=== PATIENT | female | born 1965 | race Caucasian/White ===

== ENCOUNTER 2020-08-05 00:18 | Emergency (ER) | payer SELFPAY ==
[~2020-08-05] VITALS: Ht 167.6 cm; Wt 68.0 kg
[2020-08-05 01:48] LABS: Acetaminophen, Random 4.2 ug/mL (10.0-30.0); Alanine Aminotransfer (ALT/SGP 84 U/L (12-78); Albumin/Globulin Ratio 0.4 (0.8-1.8); Alk Phos 210 U/L (50-136); Anion Gap 5 mmol/L (6-16); Aspartate Aminotrans (AST/SGOT 101 U/L (12-37); Bilirubin, Total 0.5 mg/dL (0.1-1.0); Blood Urea Nitrogen 18 mg/dL (8-24); Bun/Creatinine Ratio 24.5 (12.0-20.0); CO2, Blood 29 mmol/L (21-32); Chloride, Blood 111 mmol/L (98-108); Creatinine, Blood 0.74 mg/dL (0.40-1.00); Ethanol (Alcohol), Blood, Med <3 mg/dL; Globulin, Blood 4.8 g/dL (2.2-4.0); Glomerular Filtration Rate >60 (60-); Glucose, Blood 117 mg/dL (70-99); Potassium, Blood 3.8 mmol/L (3.5-5.5); Salicylate 15.2 mg/dL (2.8-20.0); Sodium, Blood 145 mmol/L (136-145); Total Protein, Blood 6.8 g/dL (6.4-8.2)
[2020-08-05 01:52] LABS: BASOPHILS ABSOLUTE AUTO 0.07 K/mm3 (0.00-0.23); BASOPHILS PERCENT AUTO 1 % (0-2); EOSINOPHILS ABSOLUTE AUTO 0.51 K/mm3 (0.00-0.68); EOSINOPHILS PERCENT AUTO 6 % (0-6); Hematocrit 42.7 % (33.0-51.0); Hemoglobin 13.5 g/dL (11.5-16.0); IMMATURE GRAN ABSOLUTE AUTO 0.02 K/mm3 (0.00-0.10); IMMATURE GRAN PERCENT AUTO 0 % (0-1); LYMPHOCYTES PERCENT AUTO 33 % (21-46); MONOCYTES ABSOLUTE AUTO 0.94 K/mm3 (0.16-1.47); MONOCYTES PERCENT AUTO 12 % (4-13); Mean Corpuscular HGB 32.5 pg (26.0-34.0); Mean Corpuscular HGB Conc 31.6 g/dL (31.5-36.5); Mean Corpuscular Volume 103 fL (80-100); Mean Platelet Volume 11.2 fL (9.1-12.4); NEUTROPHILS ABSOLUTE AUTO 3.81 K/mm3 (1.96-9.15); NEUTROPHILS PERCENT AUTO 48 % (41-73); Platelet Count 122 K/mm3 (150-400); RDW Coefficient Variation 13.7 % (11.7-14.2); RDW Standard Deviation 52.6 fL (35.1-46.3); Red Blood Cell Count 4.15 M/mm3 (3.80-5.20); White Blood Cell Count 7.95 K/mm3 (4.00-11.30)
[2020-08-05 06:14] LABS: Source, Urine Clean Catch
[2020-08-05 06:18] LABS: Bilirubin, Urine Neg (Neg); Blood, Urine 2+ (Neg); Glucose Qualitative, Urine Neg (Neg); Ketones, Urine Neg (Neg); Leukocyte Esterase, Urine Neg (Neg); Nitrite, Urine Pos (Neg); Protein, Urine 2+ (Neg); Specific Gravity, Urine 1.015 (1.003-1.022); Urobilinogen, Urine 2+ (Normal); pH, Urine 6.5 (5.0-8.0)
[2020-08-05 06:23] LABS: Appearance, Urine Hazy (Clear); Color, Urine Yellow (P-Yellow)
[2020-08-05 06:24] LABS: Bacteria Many /hpf; Red Blood Cells, Urine 0-2 /hpf (0-2); Squamous Epithelial Cells Rare /hpf (Few); White Blood Cells, Urine 0-2 /hpf (0-5)
[2020-08-05 06:29] LABS: U Amphetamine Screen DETECTED; U Barbituate Screen Not Detected; U Benzodiazapine Screen Not Detected; U Buprenorphine Screen Not Detected; U Cannabinoids Screen Not Detected; U Cocaine Screen Not Detected; U Methadone Screen Not Detected; U Methamphetamine Screen DETECTED; U Opiates Screen Not Detected; U Oxycodone Screen Not Detected; U Phencyclidine Screen Not Detected; U Propoxyphene Screen Not Detected
== END 2020-08-05 09:58 | disposition home or self-care (01) ==
LOC: ER 00:18
PROVIDERS: Emergency Medicine
DX: R10.9 Unspecified abdominal pain (principal); F15.10 Other stimulant abuse, uncomplicated; R11.2 Nausea with vomiting, unspecified; F17.200 Nicotine dependence, unspecified, uncomplicated; Z88.0 Allergy status to penicillin
CPT/HCPCS: 74176; 80053; 81001; 81025; 83690; 85025; 87077; 87086; 87186; 96374; 99284-25; G0480; J2060; J7030

== ENCOUNTER 2020-08-19 20:08 | Emergency (ER) | payer SELFPAY ==
[~2020-08-19] VITALS: Ht 175.3 cm; Wt 59.0 kg
[2020-08-19 21:50] LABS: U Amphetamine Screen DETECTED; U Barbituate Screen Not Detected; U Benzodiazapine Screen Not Detected; U Buprenorphine Screen Not Detected; U Cannabinoids Screen Not Detected; U Cocaine Screen Not Detected; U Methadone Screen Not Detected; U Methamphetamine Screen DETECTED; U Opiates Screen Not Detected; U Oxycodone Screen Not Detected; U Phencyclidine Screen Not Detected; U Propoxyphene Screen Not Detected
[2020-08-19] MEDS ORDERED: PRED20 PO (23:28)
[2020-08-19] MEDS ORDERED: ALBU90OI INH (23:28)
== END 2020-08-20 01:22 | disposition home or self-care (01) ==
LOC: ER 20:08
PROVIDERS: Emergency Medicine
DX: R09.02 Hypoxemia (principal); F15.10 Other stimulant abuse, uncomplicated; F17.200 Nicotine dependence, unspecified, uncomplicated; Z88.0 Allergy status to penicillin; Z79.52 Long term (current) use of systemic steroids
CPT/HCPCS: 71045; 93005; 93010; 94644; 96372; 99285-25; J1100; J2060; J2930

== ENCOUNTER 2020-08-27 20:23 | Inpatient (IN) | payer OTHER ==
[~2020-08-27] VITALS: Ht 175.3 cm; Wt 69.8 kg
[~2020-08-27 20:23] MED LIST: ALBU90OI INH; PRED20 PO
[2020-08-28 01:28] LABS: BASOPHILS ABSOLUTE AUTO 0.05 K/mm3 (0.00-0.23); BASOPHILS PERCENT AUTO 1 % (0-2); EOSINOPHILS ABSOLUTE AUTO 0.15 K/mm3 (0.00-0.68); EOSINOPHILS PERCENT AUTO 2 % (0-6); Hematocrit 38.6 % (33.0-51.0); Hemoglobin 12.4 g/dL (11.5-16.0); IMMATURE GRAN ABSOLUTE AUTO 0.04 K/mm3 (0.00-0.10); IMMATURE GRAN PERCENT AUTO 1 % (0-1); LYMPHOCYTES ABSOLUTE AUTO 1.49 K/mm3 (0.84-5.20); LYMPHOCYTES PERCENT AUTO 20 % (21-46); MONOCYTES ABSOLUTE AUTO 1.19 K/mm3 (0.16-1.47); MONOCYTES PERCENT AUTO 16 % (4-13); Mean Corpuscular HGB 32.3 pg (26.0-34.0); Mean Corpuscular HGB Conc 32.1 g/dL (31.5-36.5); Mean Corpuscular Volume 101 fL (80-100); Mean Platelet Volume 12.3 fL (9.1-12.4); NEUTROPHILS PERCENT AUTO 61 % (41-73); Platelet Count 87 K/mm3 (150-400); RDW Coefficient Variation 14.3 % (11.7-14.2); RDW Standard Deviation 53.5 fL (35.1-46.3); Red Blood Cell Count 3.84 M/mm3 (3.80-5.20); White Blood Cell Count 7.42 K/mm3 (4.00-11.30)
[2020-08-28 01:47] LABS: Alanine Aminotransfer (ALT/SGP 67 U/L (12-78); Albumin, Blood 2.2 g/dL (3.4-5.0); Albumin/Globulin Ratio 0.5 (0.8-1.8); Alk Phos 211 U/L (50-136); Anion Gap 5 mmol/L (6-16); Aspartate Aminotrans (AST/SGOT 58 U/L (12-37); Bilirubin, Total 0.9 mg/dL (0.1-1.0); Blood Urea Nitrogen 10 mg/dL (8-24); CO2, Blood 27 mmol/L (21-32); Calcium, Blood 7.6 mg/dL (8.5-10.1); Chloride, Blood 106 mmol/L (98-108); Creatinine, Blood 0.53 mg/dL (0.40-1.00); Globulin, Blood 4.5 g/dL (2.2-4.0); Glomerular Filtration Rate >60 (60-); Glucose, Blood 242 mg/dL (70-99); Potassium, Blood 3.8 mmol/L (3.5-5.5); Sodium, Blood 138 mmol/L (136-145); Total Protein, Blood 6.7 g/dL (6.4-8.2); Troponin I <0.015 ng/mL (0.000-0.040)
--- NOTE | 2020-08-28 05:00 | NUR ---
pt arrived to room via stretcher, stood and walked to bed. a/o x 4, cooperative. SOB with exertion/speaking. NC O2 2L applied, SPO2 >90%. Lungs: course, experatory crackles in bases. VS show HR 108.
--- NOTE | 2020-08-28 16:15 | NUR ---
PT IS A/OX3, ANXIOUS AND SPASTIC/IMPULSIVE, AT TIMES NON COMPLIENT WITH TAKEING MEDICATION. THE PT WAS UP IND T/O THE DAY TO THE BATHROOM, PT IS SOB WITH ACTIVITY, THE PT DENIED ANY PAIN T/O THE DAY, THE PT WAS GIVEN A SHOWER THIS AFTERNOON, CALL LIGHT IN REACH, WILL CONTINUE TO MONITOR AND ASSESS FOR CHANGES
--- NOTE | 2020-08-29 05:15 | NUR ---
SHIFT SUMMARY PT HAS RESTED OFF AND ON T/O THE NIGHT. PT IS GENREALLY ANXIOUS BUT PLESANT AND COOPERATIVE WITH CARE. NEW IV ESTABLISHED USING ULTRASOUND, OLD IV WAS LEAKING. PT HAS BEEN INDEPENDENT IN THE ROOM. HARSH MOIST PRODUCTIVE COUGH. PT WEARS HER OXYGEN OFF AND ON THIS SHIFT. RESP LABORED WITH EXERTION. NO ACUTE CHANGES IN ASSESSMENT. BED IN LOWEST POSITON, CALL LIGHT WITHIN REACH.
--- NOTE | 2020-08-29 16:26 | NUR ---
PT IS A/OX3, PLEASANT AND COOPERATIVE, THE PT IS UP IND IN HER ROOM , THE PT HAS BEEN OUT AMBULATING IN THE [place] USEING THE FWW, THE PT APPEARS TO BE BREATHING EASILY ON RA AT THIS TIME MILDLY SOB WITH ACTIVITY, THE PT WAS UP AND SHOWERED TODAY, BOWEL CARE WAS GIVEN PT CONTINUES TO REPORT CONSTIPATION, CALL LIGHT IN REACH, WILL CONTNUE TO MONITOR AND ASSESS FOR CHANGES
--- NOTE | 2020-08-30 01:09 | NUR ---
ANXIETY-BEHA AROUND 2315 PT AWOKE FROM A SHORT NAP. SHE WAS EXTREMELY ANXIOUS, YELLING OUT/CURSING AND PACING BACK AND FORTH IN HER ROOM. MOVING FROM HER BED TO THE RECLINER TO BENCH, AND EVEN AT ONE POINT WAS LAYING ON THE FLOOR. SHE COMPLAINED OF BEING HOT AND COLD, AND ITCHING. PT GRABBING AND PULLING ON HER GOWN AND THE TELE LEADS. PT HAS A POSITIVE HX OF METH ABUSE, NO TOX SCREEN DONE UPON ADMISSION. I ASKED PT WHEN SHE LAST USED AND SHE REPORTS TWO WEEKS AGO. PT ALSO COMPLAINED OF LEFT CHRONIC HIP PAIN. DR. FARRELL CALLED AND NOTIFED AROUND 2330 OF PT ANXIETY, POSITIVE METH HX AND HIP PAIN. RECEIVED ORDER FOR ATARAX FOR ANXIETY AND TORADOL FOR PAIN. AFTER RECEIVING ORDER PT INITALLY REFUSED TO TAKE ATARAX AND TORADOL AND FELL ASLEEP FOR ABOUT ANOTHER HOUR. SHE AWOKE AGAIN ANXIOUS WITH SAME BEHAVIOUR PREVIOUSLY MENTIONED, BUT WITH MUCH MORE INTENSITY. SHE THEN REQUESTED THE ATARAX AND TORADOL. BOTH WERE GIVEN BUT WITH LITTLE EFFECT ON PT BEHAVIOUR, AND SHE CONTINUED TO ESCULATE YELLING OUT LOUDLY AND NOT STAYING IN BED. PT HAS HAD OFF AND ON NAUSEA/VOMITING AND DRY HEAVES SINCE THE START OF THE SHIFT AND RECEIVED REGLAN WITH AFFECT. SHE DENIED NAUSEA OR VOMITTING, BUT APPEARED TO BE DRY HEAVING. DR. CORDERO CALLED AND NOTIFIED OF PT INCREASED ANXIETY AND POSITIVE METH HX AT 0100. NOTIFIED HIM THAT PT RECEIVED ATARAX WITH LITTLE TO NO EFFECT AND REQUESTED SOMETHING ELSE FOR ANXIETY AND A TOX SCREEN. RECEIVED ORDER FOR IV ATIVAN AND VIC VEST IF NEEDED. HE DID NOT WANT TO ORDER A TOX SCREEN AT THIS TIME. ATIVAN GIVEN AND SEEMS TO BE TAKING EFFECT, NO RESTRAINTS ARE NEEDED AT THIS TIME. PT IS RESTING IN BED. CALL LIGHT WITHIN REACH. WILL CONTINUE TO MONITOR. CHECKING CLERK'S AWARE.
--- NOTE | 2020-08-30 05:09 | NUR ---
SHIFT SUMMARY PT HAS OVERALL HAD A RESTLESS NIGHT. PT HAS HX OF METH ABUSE AND IS POSSIBLY EXPERIENCING WITHDRAWAL. PT HAS HAD PERIODS OF AGITATION AND SEVERE ANXIETY UNABLE TO STAY STILL. YELLING, CURSING AND TALKING TO HERSELF, N/V, DRY HEAVES. HOSPITALIST HAS BEEN NOTIFIED AND ORDERS RECEIVED FOR ATIVAN AND ATARAX. BOTH GIVEN WITH EFFECT. PT HAS RESTED SINCE THAT TIME. SHE REMAINS INDEPENDENT IN THE ROOM, USING A WALKER TO AMBULATE. VITALS ARE STABLE. BED IN LOWEST POSITON, CALL LIGHT WITHIN REACH.
[2020-08-30 05:46] LABS: Hematocrit 39.3 % (33.0-51.0); Hemoglobin 12.9 g/dL (11.5-16.0); Mean Corpuscular HGB 32.8 pg (26.0-34.0); Mean Corpuscular HGB Conc 32.8 g/dL (31.5-36.5); Mean Corpuscular Volume 100 fL (80-100); Mean Platelet Volume 12.2 fL (9.1-12.4); Platelet Count 118 K/mm3 (150-400); RDW Coefficient Variation 14.2 % (11.7-14.2); RDW Standard Deviation 53.1 fL (35.1-46.3); Red Blood Cell Count 3.93 M/mm3 (3.80-5.20); White Blood Cell Count 16.48 K/mm3 (4.00-11.30)
[2020-08-30 06:04] LABS: Alanine Aminotransfer (ALT/SGP 77 U/L (12-78); Albumin/Globulin Ratio 0.4 (0.8-1.8); Alk Phos 166 U/L (50-136); Anion Gap 1 mmol/L (6-16); Aspartate Aminotrans (AST/SGOT 69 U/L (12-37); Bilirubin, Total 0.7 mg/dL (0.1-1.0); Blood Urea Nitrogen 29 mg/dL (8-24); Bun/Creatinine Ratio 40.9 (12.0-20.0); CO2, Blood 34 mmol/L (21-32); Calcium, Blood 8.5 mg/dL (8.5-10.1); Chloride, Blood 106 mmol/L (98-108); Creatinine, Blood 0.71 mg/dL (0.40-1.00); Globulin, Blood 4.5 g/dL (2.2-4.0); Glomerular Filtration Rate >60 (60-); Glucose, Blood 106 mg/dL (70-99); Potassium, Blood 4.5 mmol/L (3.5-5.5); Sodium, Blood 141 mmol/L (136-145); Total Protein, Blood 6.5 g/dL (6.4-8.2)
--- NOTE | 2020-08-30 08:44 | NUR ---
WHEEZING WITH INCREASED WORK OF BREATHING AND DYSPNEA. RT NOTIFIED. PT REFUSED RT TX THIS AM BUT IS AGREEABLE NOW. UP IN CHAIR. O2 SATS WNL
--- NOTE | 2020-08-30 11:22 | NUR ---
PATIENT WAS HOMELESS PRIOR TO MOVING TO [place], AND WAS NOT TAKING ANY MEDICATIONS. REFUSED SECOND SET OF BLOOD CULTURES. EXPLAINED PURPOSE AND NECESSITY, CONTINUES TO DECLINE. NOTIFIED.
[2020-08-30 13:52] LABS: U Amphetamine Screen Not Detected; U Barbituate Screen Not Detected; U Benzodiazapine Screen Not Detected; U Buprenorphine Screen Not Detected; U Cannabinoids Screen Not Detected; U Cocaine Screen Not Detected; U Methadone Screen Not Detected; U Methamphetamine Screen Not Detected; U Opiates Screen Not Detected; U Oxycodone Screen Not Detected; U Phencyclidine Screen Not Detected
[2020-08-30 13:53] LABS: U Propoxyphene Screen Not Detected
--- NOTE | 2020-08-30 15:30 | NUR ---
PATIENT IS HAVING SEVERE ANXIETY AND AGITATION DUE TO NPO STATUS. THREW TELE BOX ACROSS THE ROOM. STATES SHE IS LEAVING AMA. CALLED MD TO NOTIFY, MD STATES SHE IS NOT HAVE FOOD, AND WE ARE TO AWAIT SURGERY. PT YELLING PROFANITIES UNABLE TO UNDERSTAND RATIONALE FOR NPO STATUS; KEEPS ASKING WHY SHE IS NPO, AFTER EXPLAINING SBO TX IN A MULTITUDE OF WAYS. LAYING IN BED AT THIS TIME WITH TELE PACK OFF AND BED ALARM ON. LR IN PLACE AT 150ML/HR.
--- NOTE | 2020-08-30 20:32 | NUR ---
PT REFUSED VITAL SIGNS, NURSE NOTIFIED
--- NOTE | 2020-08-30 20:45 | NUR ---
REFUSED CARE PT REFUSED PM VITALS WELL MEDICATIONS THIS EVENING. AGREEABLE TO ASSESSMENT AFTER SOME RESISTANCE.
[2020-08-31 04:56] LABS: BASOPHILS ABSOLUTE AUTO 0.01 K/mm3 (0.00-0.23); BASOPHILS PERCENT AUTO 0 % (0-2); EOSINOPHILS ABSOLUTE AUTO 0.03 K/mm3 (0.00-0.68); EOSINOPHILS PERCENT AUTO 0 % (0-6); Hematocrit 37.4 % (33.0-51.0); IMMATURE GRAN ABSOLUTE AUTO 0.07 K/mm3 (0.00-0.10); IMMATURE GRAN PERCENT AUTO 1 % (0-1); LYMPHOCYTES ABSOLUTE AUTO 1.94 K/mm3 (0.84-5.20); LYMPHOCYTES PERCENT AUTO 18 % (21-46); MONOCYTES ABSOLUTE AUTO 1.28 K/mm3 (0.16-1.47); MONOCYTES PERCENT AUTO 12 % (4-13); Mean Corpuscular HGB 32.2 pg (26.0-34.0); Mean Corpuscular HGB Conc 32.1 g/dL (31.5-36.5); Mean Corpuscular Volume 100 fL (80-100); Mean Platelet Volume 12.3 fL (9.1-12.4); NEUTROPHILS ABSOLUTE AUTO 7.51 K/mm3 (1.96-9.15); NEUTROPHILS PERCENT AUTO 69 % (41-73); Platelet Count 97 K/mm3 (150-400); RDW Coefficient Variation 13.9 % (11.7-14.2); RDW Standard Deviation 51.8 fL (35.1-46.3); Red Blood Cell Count 3.73 M/mm3 (3.80-5.20); White Blood Cell Count 10.84 K/mm3 (4.00-11.30)
--- NOTE | 2020-08-31 05:05 | NUR ---
JUNIOR ADMINISTRATIVE ASSISTANT SUMMARY A/OX3. AGITATED AND ANXIOUS AT TIMES. REFUSES MOST CARE. PG TO BARBIE RUNNING LR AT 150. UP TO BSC WITH 1 ASSIST. SEVERAL NOLAND COLORED BM'S THIS SHIFT. ADVANCED TO FULL LIQUID DIET. NO ACUTE CHANGES AT THIS TIME. BED IN LOWEST POSITION, ALARM ON, CALL LIGHT IN REACH. WILL CONTINUE TO MONITOR AND REPORT TO ONCOMING RN.
[2020-08-31 05:16] LABS: Anion Gap 4 mmol/L (6-16); Blood Urea Nitrogen 23 mg/dL (8-24); Bun/Creatinine Ratio 38.7 (12.0-20.0); CO2, Blood 29 mmol/L (21-32); Calcium, Blood 8.4 mg/dL (8.5-10.1); Chloride, Blood 107 mmol/L (98-108); Creatinine, Blood 0.59 mg/dL (0.40-1.00); Glomerular Filtration Rate >60 (60-); Glucose, Blood 132 mg/dL (70-99); Potassium, Blood 4.6 mmol/L (3.5-5.5); Sodium, Blood 140 mmol/L (136-145)
--- NOTE | 2020-08-31 13:45 | NUR ---
Met pt sitting on a chair and her nurse in the room attending to her needs encouraged pt and offered prayers.
--- NOTE | 2020-08-31 14:51 | NUR ---
SHAUN, SISTER IN LAW, DIALED BY THIS RN PER HER REQUEST, AND HANDED THE PHONE TO THE PATIENT. PATIENT WAS VERY UPSET YELLING THAT SHE DOES NOT WANT TO SPEAK TO SHAUN, AND SHE HUNG UP THE PHONE. SHAUN IS AT [phone].
--- NOTE | 2020-08-31 18:22 | NUR ---
CARE TRANSFERRED TO [facility] IN [facility], SBAR REPORT GIVEN.
--- NOTE | 2020-08-31 18:37 | NUR ---
SHIFT SUMMARY PT TRANSFERRED TO ROOM 347. PT ORIENTED TO ROOM AND TUCKED IN BED. BED IN LOW POSITION, CALL LIGHT WITHIN REACH. PT ARRIVED TO ROOM AT ABOUT 1820 VIA WHEELCHAIR.
--- NOTE | 2020-09-01 05:11 | NUR ---
Shift summary: Patient is A&Ox2, does not know date. BP's are elevated, no head ache or blurred vision. Patient reports Abd. pain, constipation and Nausea. Toradol given for pain. zofran given for nausea and miralax was given early, patients asked for prune juice but is diabetic. Patient was also anxious and atarax was given with good effect x 1. Patient has had 3 very small soft formed BMs this shift. Abd. is distended, positive BS x4 passing flatus. Up to the BSC with a stand by assist of one, bed alarm is on for safety.
[2020-09-01 06:43] LABS: BASOPHILS ABSOLUTE AUTO 0.03 K/mm3 (0.00-0.23); BASOPHILS PERCENT AUTO 0 % (0-2); EOSINOPHILS ABSOLUTE AUTO 0.15 K/mm3 (0.00-0.68); EOSINOPHILS PERCENT AUTO 2 % (0-6); Hematocrit 37.5 % (33.0-51.0); Hemoglobin 12.3 g/dL (11.5-16.0); IMMATURE GRAN ABSOLUTE AUTO 0.08 K/mm3 (0.00-0.10); IMMATURE GRAN PERCENT AUTO 1 % (0-1); LYMPHOCYTES ABSOLUTE AUTO 2.28 K/mm3 (0.84-5.20); LYMPHOCYTES PERCENT AUTO 27 % (21-46); MONOCYTES ABSOLUTE AUTO 1.05 K/mm3 (0.16-1.47); MONOCYTES PERCENT AUTO 12 % (4-13); Mean Corpuscular HGB 32.9 pg (26.0-34.0); Mean Corpuscular HGB Conc 32.8 g/dL (31.5-36.5); Mean Corpuscular Volume 100 fL (80-100); Mean Platelet Volume 12.3 fL (9.1-12.4); NEUTROPHILS PERCENT AUTO 58 % (41-73); Platelet Count 92 K/mm3 (150-400); RDW Coefficient Variation 14.1 % (11.7-14.2); RDW Standard Deviation 51.9 fL (35.1-46.3); Red Blood Cell Count 3.74 M/mm3 (3.80-5.20); White Blood Cell Count 8.59 K/mm3 (4.00-11.30)
[2020-09-01 06:55] LABS: Alanine Aminotransfer (ALT/SGP 104 U/L (12-78); Albumin, Blood 1.8 g/dL (3.4-5.0); Albumin/Globulin Ratio 0.4 (0.8-1.8); Alk Phos 180 U/L (50-136); Anion Gap 3 mmol/L (6-16); Aspartate Aminotrans (AST/SGOT 97 U/L (12-37); Bilirubin, Total 0.6 mg/dL (0.1-1.0); Blood Urea Nitrogen 20 mg/dL (8-24); Bun/Creatinine Ratio 34.5 (12.0-20.0); CO2, Blood 32 mmol/L (21-32); Calcium, Blood 8.2 mg/dL (8.5-10.1); Chloride, Blood 106 mmol/L (98-108); Creatinine, Blood 0.58 mg/dL (0.40-1.00); Globulin, Blood 4.3 g/dL (2.2-4.0); Glomerular Filtration Rate >60 (60-); Glucose, Blood 141 mg/dL (70-99); Potassium, Blood 4.1 mmol/L (3.5-5.5); Sodium, Blood 141 mmol/L (136-145); Total Protein, Blood 6.1 g/dL (6.4-8.2)
[2020-09-01 07:48] LABS: BASOPHILS PERCENT MAN 0 % (0-2); EOSINOPHILS ABSOLUTE MAN 0.17 K/mm3 (0.00-0.68); EOSINOPHILS PERCENT MAN 2 % (0-6); LYMPHOCYTES % ATYPICAL MANUAL 1 % (0-0); LYMPHOCYTES ABSOLUTE MAN 3.35 K/mm3 (0.84-5.20); LYMPHOCYTES PERCENT MAN 38 % (21-46); MONOCYTES ABSOLUTE MAN 0.68 K/mm3 (0.16-1.47); MONOCYTES PERCENT MAN 8 % (4-13); NEUTROPHILS ABSOLUTE MAN 4.38 K/mm3 (1.96-9.15); SEG NEUTROPHILS PERCENT MAN 51 % (41-73); TOTAL CELLS COUNTED 100
[2020-09-01] MEDS ORDERED: Atarax10 MG PO (09:51)
[2020-09-01] MEDS ORDERED: SENN187 PO (09:51)
[2020-09-01] MEDS ORDERED: ALBU90OI INH (09:52)
--- NOTE | 2020-09-01 14:56 | NUR ---
DISCHARGE SUMMARY PT AxOx3. SEEMS CONFUSED, BUT DIFFICULTY TO FULLY ASSESS SHE DOES NOT RESPOND TO QUESTIONS SOMETIMES. SHE MAY JUST BE IRRITABLE AND CHOOSING NOT TO ANSWER. PT HAD MULTIPLE SMALL BM'S TODAY. APPETITE IS GOOD. WALKING INDEPENDENTLY IN THE ROOM. DENIES PAIN. C/O SOME NAUSEA AND 1 EMESIS EPISODE. MEDICATED PER EMAR. PT DC TODAY HOME WITH FAMILY. DISCHARGE INSTRUCTIONS DISCUSSED WITH PT INCLUDING FOLLOW UP INFORMATION AND DC RX'S. [place] IN TO DELIEVER HOME O2 AND PT TEACHING PRIOR TO DC. PT VERBALIZES UNDERSTANDING. DECLINES HAVING FAMILY IN ROOM FOR DC INSTRUCTIONS. VITALS REVIEWED. PT SAFELY ESCORTED OUT VIA WC WITH PIANO PROFESSOR.
== END 2020-09-01 14:56 | disposition home or self-care (01) | DRG 896 ==
LOC: ER 20:23 → MEDS 08-28 04:44
PROVIDERS: Internal Medicine; Physician Assistant; ADMIT Internal Medicine
DX: F15.13 Other stimulant abuse with withdrawal (principal); G92 Toxic encephalopathy; J44.1 Chronic obstructive pulmonary disease with (acute) exacerbation; K56.0 Paralytic ileus; R18.8 Other ascites; B19.20 Unspecified viral hepatitis C without hepatic coma; E11.65 Type 2 diabetes mellitus with hyperglycemia; K74.60 Unspecified cirrhosis of liver; K59.00 Constipation, unspecified; Z99.81 Dependence on supplemental oxygen; F17.210 Nicotine dependence, cigarettes, uncomplicated; K43.9 Ventral hernia without obstruction or gangrene; D69.6 Thrombocytopenia, unspecified
CPT/HCPCS: 36415; 71045; 74176; 80048; 80053; 82947; 83036; 83605; 83880; 84484; 85025; 85027; 87040; 93005; 93010; 94640; 94644; 94664; 94667; 94760; 94761; 98960; 99285-25; 99407; A9270; J0696; J1650; J1885; J2060; J2405; J2765; J2930; J3411; J7120; J7512